=== PATIENT | female | born 1990 | race American Indian/Alaskan Native ===

== ENCOUNTER 2018-12-25 20:04 | Outpatient (CLI) | payer MEDICAID, OTHER ==
[2018-12-25] MEDS ORDERED: LACTATED RINGERS 1,000 ML IV ONE (20:36)
[2018-12-25 21:45] LABS: Hematocrit 36.3 % (30.3-42.9); Hemoglobin 11.6 gm/dl (10.1-14.3); Mean Corpuscular HGB Conc 32 % (30-34); Mean Corpuscular Volume 78 fl (79-97); Platelet Count 178 K/mm3 (140-440); Red Blood Count 4.67 M/mm3 (3.65-5.03); Red Cell Distribution Width 19.1 % (13.2-15.2)
[2018-12-25 21:53] LABS: Bacteria,Urine 2+ /HPF (Negative); Bilirubin,Urine NEG (Negative); Blood,Urine NEG (Negative); Color,Urine Yellow (Yellow); Mucus,Urine 2+ /HPF; Urobilinogen,Urine < 2.0 mg/dL (<2.0)
[2018-12-25 21:56] VITALS: BP 137/74
[2018-12-25 22:02] LABS: Alanine Aminotransferase 15 units/L (7-56); Uric Acid 5.1 mg/dL (3.5-7.6)
== END 2018-12-25 23:08 | disposition home or self-care (01) ==
LOC: TRG 20:04
PROVIDERS: ATTEND Obstetrics & Gynecology
DX: O47.03 False labor before 37 completed weeks of gestation, third trimester (principal); O13.3 Gestational [pregnancy-induced] hypertension without significant proteinuria, third trimester; O24.410 Gestational diabetes mellitus in pregnancy, diet controlled; Z3A.37 37 weeks gestation of pregnancy
CPT/HCPCS: 36415; 59025; 81001; 82565; 83615; 84450; 84460; 84550; 85027

== ENCOUNTER 2018-12-27 13:34 | Inpatient (IN) | payer OTHER, MEDICAID ==
[2018-12-27] MEDS ORDERED: ZOFRAN IV PRN (14:01)
[2018-12-27] MEDS ORDERED: SUBLIMAZE IV PRN (14:01)
[2018-12-27] MEDS ORDERED: MINERAL OIL PO PRN (14:01)
[2018-12-27] MEDS ORDERED: NARCAN 0.4 MG/1 ML IV PRN (14:01)
[2018-12-27] MEDS ORDERED: XYLOCAINE 2% INFILTRATI ONE (14:01)
[2018-12-27] MEDS ORDERED: PHENERGAN PO PRN (14:01)
[2018-12-27] MEDS ORDERED: STADOL IV PRN (14:01)
[2018-12-27] MEDS ORDERED: BRETHINE SUB-Q PRN (14:13)
--- NOTE | 2018-12-27 14:13 | History and Physical Report ---
History of Present Illness Date of examination: 12/27/18 Date of admission: 12/27/18 13:34 Chief complaint: recommnedeed iol by [facility] for uncontrolled glucose and elevated BP History of present illness: 28 yo at 37+3 weeks here for IOL. She is a transfer at 29 weeks. Rubella non -IMM. Patient as hx of ascus + HPV needs colpo PP. Anemia on iron. Past History Past Medical History: no pertinent history Past Surgical History: no surgical history Family/Genetic History: diabetes, hypertension Social history: single. denies: smoking, alcohol abuse, prescription drug abuse - Obstetrical History Expected Date of Delivery: 01/13/19 Actual Gestation: 37 Week(s) 4 Day(s) : 1 Para: 0 Hx # Term Pregnancies: 0 Number of Pregnancies: 0 Spontaneous Abortions: 0 Induced : 0 Number of Living Children: 0 Medications and Allergies Allergies Allergy/AdvReac Type Severity Reaction Status Date / Time latex Allergy Itching Verified 12/25/18 20:33 Home Medications Medication Instructions Recorded Confirmed Last Taken Type Ferrous Sulfate 325 mg PO BID 12/25/18 12/25/18 12/24/18 History Pnv 29-1 Tablet 1 tab PO DAILY 12/25/18 12/25/18 12/25/18 History Review of Systems All systems: negative - Physical Exam Breasts: Positive: normal Cardiovascular: Regular rate, Normal S1 Lungs: Positive: Clear to auscultation, Normal air movement Abdomen: Positive: soft, normal bowel sounds. Negative: distention, tenderness, guarding Genitourinary (Female): Positive: normal external genitalia, normal perenium Vagina: Positive: normal moisture Uterus: Positive: normal size, normal contour Anus/Rectum: Positive: normal perianal skin Extremities: Positive: normal Deep Tendon Reflex Grade: Normal +2 - Obstetrical FHR: category 1 Cervical Dilatation: 0.5 Cervical Effacement Percentage: 60 station: -3 Uterine Contraction Pattern: Absent Uterine Tone Measurement Phase: Resting Results All other labs normal. Assessment and Plan A/P HD1 IOL recommneded by [facility] for GDM diet control and elevated BP PIH w/u IVF, labs will start off with cervidil close monitor of maternal and status
[2018-12-27] MEDS ORDERED: BRETHINE IVP PRN (14:14)
[2018-12-27] MEDS ORDERED: PITOCin/NS 30 UNIT/500ML 30 UNITS/500 ML BAG IV SCH ×2 (15:00)
[2018-12-27] MEDS ORDERED: PITOCin/NS 20 UNIT/1000ML DRIP 20 UNITS/1,000 ML BAG IV SCH (15:00)
[2018-12-27] MEDS ORDERED: CERVIDIL VG ONE (15:01)
[2018-12-27] MEDS ORDERED: PEPCID IV ONE (17:44)
[2018-12-27 18:02] LABS: Hematocrit 37.7 % (30.3-42.9); Hemoglobin 11.8 gm/dl (10.1-14.3); Mean Corpuscular HGB Conc 31 % (30-34); Mean Corpuscular Volume 79 fl (79-97); Red Blood Count 4.75 M/mm3 (3.65-5.03); Red Cell Distribution Width 19.6 % (13.2-15.2)
[2018-12-27 18:03] LABS: Platelet Count 115 K/mm3 (140-440)
[2018-12-27] MEDS ORDERED: AMPICILLIN/NS 2 GM/100 ML 2 GM/100 ML BAG IV ONE (18:08)
[2018-12-27] MEDS ORDERED: D50W (25GM) Syringe IV PRN (21:56)
[2018-12-27] MEDS: AMBIEN PO PRN (23:20)
[2018-12-27 23:31] LABS: Alanine Aminotransferase 16 units/L (7-56); Uric Acid 5.5 mg/dL (3.5-7.6)
[2018-12-28] MEDS ORDERED: CYTOTEC VG ONE (07:25)
[2018-12-28] MEDS: LACTATED RINGERS 1,000 ML IV SCH ×3 (08:11→18:04)
--- NOTE | 2018-12-28 10:12 | Progress Note ---
Assessment and Plan A/P HD2 IOL recommneded by M for GDM diet control and elevated BP PIH w/u neg IVF, labs s/p cervidil currently cytotec intitated close monitor of maternal and status continue IOL Subjective - Subjective Date of service: 12/28/18 Principal diagnosis: Term , uncontrolled glucose, elevated BP Interval history: 28 yo at 37+3 weeks here for IOL. She is a transfer at 29 weeks. Rubella non -IMM. Patient as hx of ascus + HPV needs colpo PP. Anemia on iron. Patient reports: movement normal, contractions, no new complaints, no loss of fluid, no vaginal bleeding Objective - Vital Signs Vital Signs: Vital Signs - 12hr 12/28/18 12/28/18 12/28/18 06:11 06:15 06:16 Pulse Rate 73 73 67 Respiratory 14 14 Rate Blood Pressure 135/75 144/75 Blood Pressure 135/75 144/75 [Right] 12/28/18 12/28/18 12/28/18 07:17 08:18 10:07 Pulse Rate 71 63 75 Respiratory Rate Blood Pressure 150/78 169/88 153/82 Blood Pressure [Right] - Exam Breasts: normal Cardiovascular: Regular rate, Normal S1 Lungs: Clear to auscultation, Normal air movement Abdomen: Present: normal appearance, soft, normal bowel sounds. Absent: distention, tenderness, guarding Vulva: both: normal Uterus: Present: normal, firm. Absent: bogginess, tenderness FHR: category 1 Cervical Dilatation: 0.5 Cervical Effacement Percentage: 60 station: -3 Uterine Contraction Pattern: Irregular Uterine Tone Measurement Phase: Contraction Uterine Contraction Intensity: Mild Extremities: normal Deep Tendon Reflex Grade: Normal +2 - Labs Labs: Abnormal Labs 12/27/18 12/27/18 17:30 22:25 MCH 25 L RDW 19.6 H Plt Count 115 L POC Glucose 109 H Laboratory Results - last 24 hr 12/27/18 12/27/18 12/27/18 17:30 17:30 22:16 WBC 9.2 RBC 4.75 Hgb 11.8 Hct 37.7 MCV 79 MCH 25 L MCHC 31 RDW 19.6 H Plt Count 115 L Creatinine 0.7 Estimated GFR > 60 POC Glucose Uric Acid 5.5 AST 14 ALT 16 Lactate Dehydrogenase 170 Blood Type A POSITIVE Antibody Screen Negative 12/27/18 12/28/18 12/28/18 22:25 02:12 06:26 WBC RBC Hgb Hct MCV MCH MCHC RDW Plt Count Creatinine Estimated GFR POC Glucose 109 H 72 73 Uric Acid AST ALT Lactate Dehydrogenase Blood Type Antibody Screen
[2018-12-28] MEDS: CYTOTEC VG SCH ×2 (17:59→22:53)
[2018-12-28] MEDS: AMBIEN PO PRN (22:53)
[2018-12-29] MEDS: CYTOTEC VG SCH (04:30)
[2018-12-29] MEDS: AMPICILLIN/NS 1 GM/50 ML 1 GM/50 ML BAG IV SCH ×3 (05:06→14:16)
[2018-12-29] MEDS: LACTATED RINGERS 1,000 ML IV SCH ×3 (08:08→14:15)
--- NOTE | 2018-12-29 08:44 | Progress Note ---
Assessment and Plan A/P HD3 IOL recommneded by M for GDM diet control and elevated BP PIH w/u neg Glucose monitored last level 80s ( on sliding scale) s/p cervidil, cytotec currently intitating pitocin offer epidural close monitor of maternal and status continue IOL Subjective - Subjective Date of service: 12/29/18 Principal diagnosis: Term , uncontrolled glucose, elevated BP Interval history: 28 yo at 37+3 weeks here for IOL. She is a transfer at 29 weeks. Rubella non -IMM. Patient as hx of ascus + HPV needs colpo PP. Anemia on iron. Patient reports: loss of fluid, movement normal, contractions, no new complaints, no vaginal bleeding Objective - Vital Signs Vital Signs: Vital Signs - 12hr 12/28/18 12/28/18 12/28/18 20:46 20:48 22:45 Temperature Pulse Rate 69 69 67 Respiratory Rate Blood Pressure 164/87 165/80 Blood Pressure [Right] O2 Sat by Pulse 98 Oximetry 12/28/18 12/29/18 12/29/18 22:51 00:58 04:33 Temperature 97.7 F 96.7 F L Pulse Rate 67 75 66 Respiratory 18 14 Rate Blood Pressure 140/76 136/78 Blood Pressure 165/80 140/76 [Right] O2 Sat by Pulse Oximetry 12/29/18 12/29/18 06:29 07:45 Temperature Pulse Rate 68 Respiratory 20 Rate Blood Pressure 150/84 Blood Pressure [Right] O2 Sat by Pulse Oximetry - Exam Breasts: normal Cardiovascular: Regular rate, Normal S1 Lungs: Clear to auscultation, Normal air movement Abdomen: Present: normal appearance, soft, normal bowel sounds. Absent: distention, tenderness, guarding Vulva: both: normal Uterus: Present: normal, firm FHR: category 1 Cervical Dilatation: 3 Cervical Effacement Percentage: 70 station: -3 Uterine Contraction Pattern: Irregular Uterine Contraction Intensity: Mild - Labs Labs: Abnormal Labs 12/27/18 12/27/18 12/28/18 17:30 22:25 10:34 MCH 25 L RDW 19.6 H Plt Count 115 L POC Glucose 109 H 174 H 12/28/18 12/28/18 15:05 20:49 MCH RDW Plt Count POC Glucose 44 L 58 L Laboratory Results - last 24 hr 12/27/18 12/28/18 12/28/18 17:30 10:34 15:05 POC Glucose 174 H 44 L RPR Nonreactive 12/28/18 12/29/18 12/29/18 20:49 03:30 08:27 POC Glucose 58 L 71 81 RPR
[2018-12-29] MEDS ORDERED: MARCAINE 0.25% INFILTRATI ONE (09:03)
--- NOTE | 2018-12-29 09:16 | Anesthesia Consultation ---
Anesthesia Consult and Med Hx - Airway Anesthetic Teeth Evaluation: Good ROM Head & Neck: Adequate Mental/Hyoid Distance: Adequate Mallampati Class: Class II Intubation Access Assessment: Probably Good - Pulmonary Exam CTA: Yes - Cardiac Exam Cardiac Exam: RRR - Pre-Operative Health Status ASA Pre-Surgery Classification: ASA3 Proposed Anesthetic Plan: Epidural - Pulmonary Hx Smoking: No Hx Asthma: No Hx Respiratory Symptoms: No SOB: No COPD: No Home Oxygen Therapy: No Hx Pneumonia: No Hx Sleep Apnea: No - Cardiovascular System Hx Hypertension: Yes (pih) Hx Coronary Artery Disease: No Hx Heart Attack/AMI: No Hx Angina: No Hx Percutaneous Transluminal Coronary Angioplasty (PTCA): No Hx Cardia Arrhythmia: No Hx Pacemaker: No Hx Internal Defibrillator: No Hx Valvular Heart Disease: No Hx Heart Murmur: No Hx Peripheral Vascular Disease: No - Central Nervous System Hx Neuromuscular Disorder: No Hx Seizures: No CVA: No Hx Back Pain: No Hx Psychiatric Problems: No - Gastrointestinal Hx Ulcer: No - Endocrine Hx Renal Disease: No Hx End Stage Renal Disease: No Hx Cirrhosis: No Hx Liver Disease: No Hx Insulin Dependent Diabetes: No (gestational diabetes) Hx Non-Insulin Dependent Diabetes: No Hx Thyroid Disease: No Hx Hypothyroidism: No Hx Hyperthyroidism: No - Hematic Hx Anemia: No Hx Sickle Cell Disease: No - Other Systems Hx Alcohol Use: No Hx Substance Use: No Hx Cancer: No Hx Obesity: Yes
[2018-12-29] MEDS ORDERED: NARCAN 2 MG/2 ML IV PRN (09:19)
[2018-12-29] MEDS ORDERED: fentaNYL-BUPIV 2 MCG/ML-0.125% 200 MCG/100 ML BAG EPIDURAL SCH (10:00)
[2018-12-29] MEDS ORDERED: fentaNYL-BUPIV 2 MCG/ML-0.125% 200 MCG/100 ML BAG EPIDURAL ONE (10:42)
[2018-12-29] MEDS ORDERED: LIDOCAINE 1.5%/EPI 1:200,000 INFILTRATI ONE (16:30)
[2018-12-29] MEDS ORDERED: XYLOCAINE 2% INFILTRATI ONE (18:08)
[2018-12-29] MEDS ORDERED: PHENERGAN PO PRN (18:16)
[2018-12-29] MEDS ORDERED: TUCKS PAD TP PRN (18:16)
[2018-12-29] MEDS ORDERED: LANSINOH TP PRN (18:16)
[2018-12-29] MEDS ORDERED: ZOFRAN IV PRN (18:16)
[2018-12-29] MEDS ORDERED: DULCOLAX PR PRN (18:16)
[2018-12-29] MEDS ORDERED: PHENERGAN PR PRN (18:16)
[2018-12-29] MEDS ORDERED: PERCOCET 5/325 PO PRN (18:16)
[2018-12-29] MEDS ORDERED: BENADRYL PO PRN (18:16)
[2018-12-29] MEDS ORDERED: MILK OF MAGNESIA PO PRN (18:16)
[2018-12-29] MEDS ORDERED: TYLENOL PO PRN (18:16)
--- NOTE | 2018-12-29 18:23 | Procedure Note ---
OB Delivery Note - Delivery Date of Delivery: 12/29/18 Surgeon: JENNIFFER AC Estimated blood loss: other (250cc) - Vaginal Delivery presentation: vertex Delivery position: OA Intrapartum events: meconium (terminal) Delivery induction: cervidil Delivery augmentation: rupture of membranes, pitocin Delivery monitor: external FHT, external uterine Delivery placenta: spontaneous Delivery cord: nuchal cord, 3 umbilical vessels Episiotomy: none Delivery laceration: 1st degree Delivery repair: vicryl Anesthesia: epidural Delivery comments: Patient was noted to c/c/ +1 and commenced to pushing a viable female infant at 1754. The baby delivered after a tight nuchal cord reduced with easily delivery. The placenta delivered intact with 3 vessel cord at 1800. The apgars were 7 and 9. Weight of baby 6 pounds 11 oz. 1st degree lacs noted.Repaired in normal usual fashion with 2-0 vicryl. Patient tolerated procedure well. EBl 250 cc. Patient bonded with baby.
[2018-12-29] MEDS ORDERED: SODIUM CHLORIDE FLUSH SYRINGE 10 ML IV NR (19:00)
[2018-12-29 20:48] LABS: Hematocrit 37.8 % (30.3-42.9); Mean Corpuscular HGB Conc 32 % (30-34); Mean Corpuscular Volume 78 fl (79-97); Platelet Count 163 K/mm3 (140-440); Red Blood Count 4.86 M/mm3 (3.65-5.03); Red Cell Distribution Width 19.2 % (13.2-15.2)
[2018-12-29 21:08] LABS: Alanine Aminotransferase 19 units/L (7-56); Uric Acid 6.4 mg/dL (3.5-7.6)
[2018-12-29] MEDS: IBUPROFEN PO SCH (21:51)
[2018-12-29] MEDS ORDERED: FEOSOL PO SCH (22:00)
[2018-12-30] MEDS: COLACE PO SCH ×3 (00:31→22:20)
[2018-12-30] MEDS: NORCO 5/325 PO PRN ×2 (00:41→22:19)
[2018-12-30] MEDS: IBUPROFEN PO SCH ×3 (05:05→12:41)
[2018-12-30] MEDS ORDERED: BOOSTRIX IM ONE (06:00)
[2018-12-30 07:01] LABS: Hematocrit 34.5 % (30.3-42.9); Hemoglobin 11.1 gm/dl (10.1-14.3)
[2018-12-30] MEDS: PRENATAL VITAMIN PO SCH (10:10)
--- NOTE | 2018-12-30 17:40 | Progress Note ---
Assessment and Plan - Patient Problems (1) Vaginal delivery Current Visit: Yes Status: Acute Plan to address problem: patient doing well discharge home tomorrow Subjective - Subjective Date of service: 12/31/18 Principal diagnosis: Term , uncontrolled glucose, elevated BP Interval history: Patient without any significant complaints. Pain well controlled. Patient reports: appetite normal, voiding normally, pain well controlled : doing well Objective - Vital Signs Latest vital signs: Vital Signs Temp Pulse Resp BP BP Pulse Ox 12/30/18 13:17 97.5 F L 18 133/74 12/30/18 08:20 97.7 F 18 126/79 12/30/18 05:23 98.1 F 72 20 140/81 95 12/30/18 00:43 98.3 F 79 20 145/83 98 12/30/18 00:41 18 12/29/18 23:20 98.8 F 18 150/78 12/29/18 21:51 18 12/29/18 21:17 82 167/81 12/29/18 19:55 90 160/82 12/29/18 19:18 93 H 162/91 12/29/18 19:09 95 H 158/83 12/29/18 19:00 96 H 151/86 12/29/18 18:18 108 H 163/69 12/29/18 18:17 111 H 149/80 Intake and Output 12/30/18 12/30/18 12/30/18 06:59 14:59 22:59 Intake Total 200 360 Output Total 500 1200 Balance -300 -840 Intake: Oral 200 360 Output: Urine 500 1200 Void 500 1200 Other: Total, Intake Amount 200 120 Total, Output Amount 500 600 - Exam Uterus: Present: normal, firm - Labs Labs: Abnormal lab results 12/29/18 12/29/18 Range/Units 20:29 20:29 WBC 16.5 H (4.5-11.0) K/mm3 MCV 78 L (79-97) fl MCH 25 L (28-32) pg RDW 19.2 H (13.2-15.2) % Lactate Dehydrogenase 256 H (91-180) units/L
[2018-12-30] MEDS ORDERED: M-M-R II VACCINE SUB-Q ONE (18:16)
--- NOTE | 2018-12-31 08:22 | Discharge Summary ---
Providers - Providers Date of Admission: 12/27/18 18:12 Date of discharge: 12/31/18 Attending physician: JENNIFFER AC MD Primary care physician: [employer] [facility] Hospitalization Reason for admission: induction of labor Delivery: Discharge diagnosis: IUP at term delivered Hospital course: Patient admitted for induction of labor for gestational diabetes and HTN. s/p . unremarkable Condition at discharge: Good Disposition: DC-01 TO HOME OR SELFCARE - Discharge Diagnoses (1) Vaginal delivery Status: Acute Plan - Discharge Medications Prescriptions: RX: Ferrous Sulfate 325 mg PO BID #60 tablet. Ibuprofen [Motrin] 600 mg PO Q8H PRN #30 tablet PRN Reason: Pain oxyCODONE /ACETAMINOPHEN [Percocet 5/325] 1 tab PO Q6HR PRN #30 tablet PRN Reason: Pain - Provider Discharge Summary Activity: no sex for 6 weeks, no heavy lifting 4 weeks, no strenuous exercise Diet: routine Instructions: routine Additional instructions: [] Smoking cessation referral if applicable(refer to patient education folder for contact #) [] Refer to [facility] Booklet Call your doctor immediately for: * Fever > 100.5 * Heavy vaginal bleeding ( >1 pad per hour) * Severe persistent headache * Shortness of breath * Reddened, hot, painful area to leg or breast * schedule visit in 4 weeks - Follow up plan
[2018-12-31] MEDS: PRENATAL VITAMIN PO SCH (11:40)
[2018-12-31] MEDS: COLACE PO SCH (11:40)
[2018-12-31] MEDS: IBUPROFEN PO SCH (11:40)
[2018-12-31 18:35] VITALS: BP 150/90
== END 2018-12-31 19:05 | disposition home or self-care (01) | DRG 807 ==
LOC: UNDOADMIN 13:34 → LD 13:34 → OB 12-29 23:06
PROVIDERS: ADMIT Obstetrics & Gynecology; ATTEND Obstetrics & Gynecology
PROC: 10E0XZZ Delivery of Products of Conception, External Approach (ICD-10-PCS; principal; 2018-12-29)
PROC: 0HQ9XZZ Repair Perineum Skin, External Approach (ICD-10-PCS; 2018-12-29)
PROC: 3E0P7VZ Introduction of Hormone into Female Reproductive, Via Natural or Artificial Opening (ICD-10-PCS; 2018-12-29)
PROC: 3E0R3BZ Introduction of Anesthetic Agent into Spinal Canal, Percutaneous Approach (ICD-10-PCS; 2018-12-29)
PROC: 00HU33Z Insertion of Infusion Device into Spinal Canal, Percutaneous Approach (ICD-10-PCS; 2018-12-29)
PROC: 3E0234Z Introduction of Serum, Toxoid and Vaccine into Muscle, Percutaneous Approach (ICD-10-PCS; 2018-12-30)
DX: O77.0 Labor and delivery complicated by meconium in amniotic fluid (principal); Z37.0 Single live birth; O13.4 Gestational [pregnancy-induced] hypertension without significant proteinuria, complicating childbirth; O24.420 Gestational diabetes mellitus in childbirth, diet controlled; O69.1XX0 Labor and delivery complicated by cord around neck, with compression, not applicable or unspecified; O70.0 First degree perineal laceration during delivery; Z3A.37 37 weeks gestation of pregnancy; Z23 Encounter for immunization; Z83.3 Family history of diabetes mellitus; Z82.49 Family history of ischemic heart disease and other diseases of the circulatory system; Z91.040 Latex allergy status; Z79.899 Other long term (current) drug therapy
CPT/HCPCS: 36415; 59200; 82565; 82962; 83615; 84450; 84460; 84550; 85014; 85018; 85027; 86592; 86850; 86900; 86901; G0378; A6250; J0290; J0595; J2590; J3010; J7120

== ENCOUNTER 2020-01-29 20:45 | Inpatient (IN) | payer MEDICAID, OTHER ==
[2020-01-29] MEDS ORDERED: LACTATED RINGERS 1,000 ML ONE (21:35)
[2020-01-29 22:29] LABS: Hematocrit 39.7 % (30.3-42.9); Hemoglobin 13.1 gm/dl (10.1-14.3); Mean Corpuscular HGB Conc 33 % (30-34); Mean Corpuscular Volume 80 fl (79-97); Platelet Count 174 K/mm3 (140-440); Red Blood Count 4.95 M/mm3 (3.65-5.03)
[2020-01-29] MEDS ORDERED: TERBUTALINE 1 MG/1 ML INJ IVP PRN (23:40)
[2020-01-29] MEDS ORDERED: LIDOCAINE (2%) 20 MG/1 ML VIAL 20 ML MDV INFILTRATI ONE (23:40)
[2020-01-29] MEDS ORDERED: ONDANSETRON 4 MG/2 ML INJ IV PRN (23:40)
[2020-01-29] MEDS ORDERED: MINERAL OIL 30 ML ORAL LIQD PO PRN (23:40)
[2020-01-29] MEDS ORDERED: AMPICILLIN/NS 2 GM/100 ML 2 GM/100 ML BAG IV ONE (23:40)
[2020-01-29] MEDS ORDERED: DINOPROSTONE 10 MG VAG SUPP VG ONE (23:40)
[2020-01-29] MEDS ORDERED: ePHEDrine SULFATE 50 MG/1 ML INJ IV PRN (23:40)
[2020-01-29] MEDS ORDERED: NALOXONE 0.4 MG/1 ML INJ IV PRN (23:40)
[2020-01-29] MEDS ORDERED: fentaNYL 100 MCG/2 ML INJ IV PRN (23:40)
[2020-01-29] MEDS ORDERED: TERBUTALINE 1 MG/1 ML INJ SUB-Q PRN (23:40)
[2020-01-29] MEDS ORDERED: PROMETHAZINE 25 MG TAB PO PRN (23:40)
[2020-01-29] MEDS ORDERED: OXYTOCIN 20 UNIT/1000ML DRIP 20 UNITS/1,000 ML BAG IV SCH (23:45)
--- NOTE | 2020-01-30 01:39 | History and Physical Report ---
History of Present Illness Date of examination: 01/30/20 Date of admission: 01/29/20 20:45 Chief complaint: Here for induction History of present illness: Pt is a 29 yo at 38.6 weeks EGA who presents for induction of labor secondary to poorly controlled gestational diabetes, recently started on Metformin 500mg BID. She reports positive movement and denies LOF, vaginal bleeding, or contractions. She has received care with [facility] since 14 weeks EGA. Her has been complicated by poorly controlled GDM, pyelectasis resolved, and obesity. She has been taking low dose ASA for history of gestational HTN. 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 She is GBS positive. Past History Past Medical History: other (previous gestational hypertension, current gestational diabetes) Past Surgical History: no surgical history [employer]IST History: abnormal PAP smear Social history: no significant social history - Obstetrical History Expected Date of Delivery: 02/07/20 Actual Gestation: 38 Week(s) 6 Day(s) : 2 Para: 1 Hx # Term Pregnancies: 1 Number of Living Children: 1 Medications and Allergies Allergies Allergy/AdvReac Type Severity Reaction Status Date / Time latex Allergy Itching Verified 12/25/18 20:33 pollen extracts Allergy Unknown Verified 01/29/20 23:48 Home Medications Medication Instructions Recorded Confirmed Last Taken Type Aspirin [Adult Aspirin] 81 mg PO DAILY 01/29/20 01/29/20 1 Day Ago History ~01/28/20 Vit-Fe Fumar-FA [ 1 tab PO QDAY 01/29/20 01/29/20 1 Day Ago History Vitamin] ~01/28/20 metFORMIN [Glucophage] 500 mg PO BID 01/29/20 01/29/20 1 Day Ago History ~01/28/20 Active Meds: Active Medications Butorphanol Tartrate (Stadol) 1 mg IV Q2H PRN PRN Reason: Labor Pain Ephedrine Sulfate (Ephedrine Sulfate) 10 mg IV Q2M PRN PRN Reason: Hypotension Fentanyl (Sublimaze) 100 mcg IV Q2H PRN PRN Reason: Labor Pain Oxytocin/Sodium Chloride (Pitocin/Ns 20 Unit/1000ml Drip) 20 units in 1,000 mls @ 125 mls/hr IV DIRECT PEDRO Lactated Ringer's (Lactated Ringers) 1,000 mls @ 125 mls/hr IV DIRECT PEDRO Ampicillin Sodium (Ampicillin/Ns 1 Gm/50 Ml) 1 gm in 50 mls @ 100 mls/hr IV Q4HR PEDRO; Protocol Mineral Oil (Mineral Oil) 30 ml PO QHS PRN PRN Reason: Constipation Naloxone HCl (Naloxone) 0.1 mg IV Q2MIN PRN PRN Reason: Res Rate </= 8 or 02 SAT < 92% Ondansetron HCl (Zofran) 4 mg IV Q8H PRN PRN Reason: Nausea And Vomiting Promethazine HCl (Phenergan) 25 mg PO Q6H PRN PRN Reason: Nausea And Vomiting Terbutaline Sulfate (Brethine) 0.25 mg SUB-Q ONCE PRN PRN Reason: Hyperstimulation/Hypertonicity Terbutaline Sulfate (Brethine) 0.25 mg IVP ONCE PRN PRN Reason: Hyperstimulation/Hypertonicity Review of Systems All systems: negative Genitourinary: no vaginal bleeding, no vaginal discharge, no leakage of fluid, no contractions - Vital Signs Vital signs: Vital Signs Temp Pulse Resp BP 98.2 F 69 18 146/72 01/29/20 22:13 01/29/20 22:13 01/29/20 22:13 01/29/20 22:13 Temp Pulse Resp BP Pulse Ox 98.2 F 71 18 146/72 98 01/29/20 22:13 01/30/20 01:28 01/29/20 22:13 01/29/20 22:47 01/30/20 01:28 - Physical Exam Lungs: Positive: Normal air movement Abdomen: Positive: soft. Negative: tenderness Uterus: Positive: enlarged (gravid, EFW 7.5 pounds) - Obstetrical FHR: category 1 Uterine Contraction Monitor Mode: External Cervical Dilatation: 0 (per RN) Cervical Effacement Percentage: 40 station: -4 Results Result Diagrams: 01/29/20 22:00 Abnormal lab results 01/29/20 01/30/20 Range/Units 22:00 01:15 MCH 26 L (28-32) pg POC Glucose 167 H (70-105) All other labs normal. 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
[2020-01-30 04:36] LABS: Creatinine,Urine 81.9 mg/dL (0.1-20.0); Protein/Creatinine Ratio,Urine 0.13
[2020-01-30 04:40] LABS: Alanine Aminotransferase 14 units/L (7-56); Uric Acid 4.3 mg/dL (3.5-7.6)
[2020-01-30] MEDS: LACTATED RINGERS 1,000 ML IV SCH ×2 (05:37→17:32)
[2020-01-30] MEDS ORDERED: OXYTOCIN DRIP 30,000 MILLIUNITS/500 ML BAG IV ONE (14:10)
[2020-01-30] MEDS ORDERED: OXYTOCIN DRIP 30 UNITS/500 ML BAG IV SCH (15:00)
--- NOTE | 2020-01-30 16:47 | Event Note ---
Date: 01/30/20 Late entry. Pt uncomfortable with induction process. Reassurance given. Category I tracing. SVE: closed/thick. Pt's vagina very tender after cervidil, poorly tolerated cervical exam. Begin low dose pitocin for cervical ripening.
--- NOTE | 2020-01-30 19:00 | Event Note ---
Date: 01/30/20 Patient admitted for induction of labor secondary to gestational diabetes. The patient has received Cervidil and Pitocin without significant cervical change. The patient is requested to receive Cytotec per vagina. We will proceed with placement of Cytotec as an induction agent.
[2020-01-30] MEDS: miSOPROStol 25 MCG TAB VG PRN ×2 (22:08→22:33)
[2020-01-31] MEDS: BUTORPHANOL 2 MG/1 ML INJ IV PRN ×2 (00:03→03:14)
[2020-01-31] MEDS: LACTATED RINGERS 1,000 ML IV SCH ×4 (03:15→12:35)
--- NOTE | 2020-01-31 10:26 | Event Note ---
Date: 01/31/20 Amniotomy performed with evidence of clear fluid. Cervical exam consistent with 2 to 3 cm dilated 75% effaced. The patient had difficulty tolerating the cervical exam. Will initiate Pitocin for augmentation. Category 1 tracing
[2020-01-31] MEDS ORDERED: AMPICILLIN/NS 2 GM/100 ML 2 GM/100 ML BAG IV ONE (10:36)
[2020-01-31] MEDS ORDERED: DEXMEDETOMIDINE 200 MCG/2 ML VIAL IV ONE ×2 (11:49→20:11)
[2020-01-31] MEDS ORDERED: NALOXONE 2 MG/2 ML INJ IV PRN (12:05)
[2020-01-31] MEDS ORDERED: ePHEDrine SULFATE 50 MG/1 ML INJ IV PRN (12:05)
--- NOTE | 2020-01-31 12:07 | Anesthesia Consultation ---
Anesthesia Consult and Med Hx Date of service: 01/31/20 - Airway Anesthetic Teeth Evaluation: Good ROM Head & Neck: Adequate Mental/Hyoid Distance: Adequate Mallampati Class: Class II Intubation Access Assessment: Probably Good - Pulmonary Exam CTA: Yes - Cardiac Exam Cardiac Exam: RRR - Pre-Operative Health Status ASA Pre-Surgery Classification: ASA3 Proposed Anesthetic Plan: Epidural - Pulmonary Hx Smoking: No Hx Asthma: No Hx Respiratory Symptoms: No SOB: No COPD: No Hx Pneumonia: No Hx Sleep Apnea: No - Cardiovascular System Hx Hypertension: Yes Hx Coronary Artery Disease: No Hx Heart Attack/AMI: No Hx Angina: No Hx Percutaneous Transluminal Coronary Angioplasty (PTCA): No Hx Cardia Arrhythmia: No Hx Pacemaker: No Hx Internal Defibrillator: No Hx Valvular Heart Disease: No Hx Heart Murmur: No Hx Peripheral Vascular Disease: No - Central Nervous System Hx Neuromuscular Disorder: No Hx Seizures: No CVA: No Hx Back Pain: No Hx Psychiatric Problems: No - Gastrointestinal Hx Ulcer: No - Endocrine Hx Renal Disease: No Hx End Stage Renal Disease: No Hx Cirrhosis: No Hx Liver Disease: No Hx Insulin Dependent Diabetes: Yes (gestational diabetes) Hx Non-Insulin Dependent Diabetes: No Hx Thyroid Disease: No Hx Hypothyroidism: No Hx Hyperthyroidism: No - Hematic Hx Anemia: No Hx Sickle Cell Disease: No - Other Systems Hx Alcohol Use: No Hx Substance Use: No Hx Cancer: No Hx Obesity: Yes
[2020-01-31] MEDS ORDERED: fentaNYL-BUPIV 2 MCG/ML-0.125% 200 MCG/100 ML BAG EPIDURAL SCH (13:00)
[2020-01-31] MEDS: AMPICILLIN/NS 1 GM/50 ML 1 GM/50 ML BAG IV SCH ×2 (14:15→18:05)
[2020-01-31] MEDS ORDERED: ONDANSETRON 4 MG/2 ML INJ IV PRN (19:52)
[2020-01-31] MEDS ORDERED: WITCH HAZEL/ GLYCERIN PAD TP PRN (19:52)
[2020-01-31] MEDS ORDERED: MAGNESIUM HYDROXIDE (MOM) ORAL LIQD UDC PO PRN (19:52)
[2020-01-31] MEDS ORDERED: ACETAMINOPHEN 325 MG TAB PO PRN (19:52)
[2020-01-31] MEDS ORDERED: PROMETHAZINE 25 MG RECT SUPP PR PRN (19:52)
[2020-01-31] MEDS ORDERED: diphenhydrAMINE 25 MG CAP PO PRN (19:52)
[2020-01-31] MEDS ORDERED: PROMETHAZINE 25 MG TAB PO PRN (19:52)
[2020-01-31] MEDS ORDERED: LANOLIN/ZINC/DIMETHICONE (LANSINOH) 7 GM TP PRN (19:52)
--- NOTE | 2020-01-31 19:57 | Procedure Note ---
OB Delivery Note - Delivery Date of Delivery: 01/31/20 Surgeon: RAJIV PULIDO Estimated blood loss: 100cc - Vaginal Delivery presentation: vertex Delivery position: OA Delivery induction: cervidil Delivery augmentation: pitocin Delivery monitor: external FHT Route of delivery: Delivery placenta: spontaneous Delivery cord: nuchal cord, 3 umbilical vessels Episiotomy: none Delivery laceration: none Anesthesia: epidural Delivery comments: Patient progressed to complete complete +1 and post to deliver a live-born male with Apgars of 8 and 9 weight 7 pounds 13 ounces. After delivery of the head a nuchal cord x1 was manually reduced. The infant was then bulb suctioned and stimulated. The cord was clamped and cut x2 and the was placed on the patient's abdomen. The placenta delivered spontaneously intact with a three-vessel cord. No lacerations were noted. Estimated blood loss of 100 mL - A at 1 minute: 8 at 5 minutes: 9 Gender: Male (Weight 7 pounds 13 ounces)
[2020-01-31] MEDS ORDERED: IBUPROFEN 600 MG TAB PO SCH (20:00)
[2020-01-31] MEDS: HYDROcodone/ACETAMINOPHEN 5-325 MG TAB PO PRN (22:45)
[2020-02-01] MEDS: HYDROcodone/ACETAMINOPHEN 5-325 MG TAB PO PRN (06:42)
--- NOTE | 2020-02-01 07:47 | Progress Note ---
Assessment and Plan - Patient Problems (1) Gestational diabetes Current Visit: Yes Status: Acute Plan to address problem: Discharge home (2) Morbid obesity Current Visit: Yes Status: Acute (3) Vaginal delivery Current Visit: No Status: Acute Subjective - Subjective Date of service: 02/01/20 Interval history: Patient without any significant complaints. Her lochia is decreasing. She reports intermittent uterine cramping. Patient reports: appetite normal, voiding normally, pain well controlled [place]: doing well Objective - Vital Signs Latest vital signs: Vital Signs Temp Pulse Resp BP BP Pulse Ox 02/01/20 06:42 20 02/01/20 02:12 98.3 F 80 18 135/68 96 01/31/20 22:45 97.7 F 84 20 148/78 95 01/31/20 22:10 98 F 01/31/20 21:09 89 97 01/31/20 21:07 82 172/90 01/31/20 21:03 88 97 01/31/20 20:59 82 173/96 01/31/20 20:58 85 99 01/31/20 20:08 88 99 01/31/20 20:03 90 100 01/31/20 19:58 91 H 100 01/31/20 19:53 94 H 100 01/31/20 19:51 90 146/70 01/31/20 19:43 103 H 100 01/31/20 19:38 116 H 100 01/31/20 19:37 100 H 137/64 01/31/20 19:33 97 H 100 01/31/20 19:28 83 100 01/31/20 19:23 90 100 01/31/20 19:04 74 100 01/31/20 19:00 97.9 F 01/31/20 18:59 74 100 01/31/20 18:54 71 100 01/31/20 18:53 72 126/61 01/31/20 18:49 71 100 01/31/20 18:44 72 100 01/31/20 18:39 78 100 01/31/20 18:38 67 133/68 01/31/20 18:34 75 100 01/31/20 18:29 71 100 01/31/20 18:24 73 100 01/31/20 18:22 70 129/63 01/31/20 18:19 74 100 03/28/20 18:14 72 100 01/31/20 18:09 71 100 01/31/20 18:07 70 134/64 01/31/20 18:06 97.4 F L 16 01/31/20 18:04 72 98 01/31/20 17:59 69 98 01/31/20 17:54 66 99 01/31/20 17:53 77 151/64 01/31/20 17:49 70 98 01/31/20 17:44 73 98 01/31/20 17:39 69 99 01/31/20 17:37 67 126/60 01/31/20 17:34 72 98 01/31/20 17:29 65 99 01/31/20 17:24 66 100 01/31/20 17:23 66 136/66 01/31/20 17:19 69 99 01/31/20 17:14 68 100 01/31/20 17:05 57 L 83 L 01/31/20 17:02 65 100 01/31/20 16:57 70 100 01/31/20 16:53 69 135/76 01/31/20 16:52 69 100 01/31/20 16:47 72 100 01/31/20 16:42 69 100 01/31/20 16:38 79 137/75 01/31/20 16:37 72 100 01/31/20 16:32 67 100 01/31/20 16:27 65 100 01/31/20 16:23 64 126/70 01/31/20 16:22 68 100 01/31/20 16:17 67 100 01/31/20 16:12 67 100 01/31/20 16:08 72 153/82 01/31/20 16:07 69 100 01/31/20 16:02 66 100 01/31/20 15:57 72 100 01/31/20 15:53 68 138/82 01/31/20 15:52 66 100 01/31/20 15:35 63 99 01/31/20 15:30 67 100 01/31/20 15:28 97.9 F 20 01/31/20 15:25 69 100 01/31/20 15:23 69 121/71 01/31/20 15:20 66 99 01/31/20 15:15 64 99 01/31/20 15:10 67 100 01/31/20 15:08 69 117/66 01/31/20 15:05 67 99 01/31/20 15:00 68 99 01/31/20 14:55 66 100 01/31/20 14:52 64 115/61 01/31/20 14:50 66 100 01/31/20 14:45 68 100 01/31/20 14:40 68 100 01/31/20 14:38 71 119/77 01/31/20 14:35 65 100 01/31/20 14:30 71 100 01/31/20 14:25 67 100 01/31/20 14:22 68 115/65 01/31/20 14:20 69 100 01/31/20 14:15 67 100 01/31/20 14:10 68 100 01/31/20 14:07 66 121/66 01/31/20 14:05 70 100 01/31/20 14:00 70 100 01/31/20 13:55 68 100 01/31/20 13:52 69 116/58 01/31/20 13:50 74 100 01/31/20 13:45 68 98 01/31/20 13:40 77 99 01/31/20 13:36 68 96/53 01/31/20 13:35 67 98 01/31/20 13:30 70 98 01/31/20 13:26 84 94 01/31/20 13:25 77 98 01/31/20 13:24 72 96/54 01/31/20 13:20 81 98 01/31/20 13:15 74 97 01/31/20 13:10 69 96 01/31/20 13:06 72 115/56 01/31/20 13:05 76 98 01/31/20 13:00 84 99 01/31/20 12:55 84 98 01/31/20 12:53 97.4 F L 18 01/31/20 12:51 79 110/56 01/31/20 12:50 75 96 01/31/20 12:45 74 98 01/31/20 12:40 75 98 01/31/20 12:36 77 118/61 01/31/20 12:35 80 97 01/31/20 12:30 83 98 01/31/20 12:25 76 98 01/31/20 12:21 77 120/55 01/31/20 12:20 78 98 01/31/20 12:19 81 117/60 20 12:17 78 119/57 01/31/20 12:15 78 121/60 98 20 12:13 70 126/58 01/31/20 12:11 75 128/59 20 12:10 76 98 01/31/20 12:09 75 124/58 01/31/20 12:07 76 138/55 01/31/20 12:05 74 140/65 98 01/31/20 12:03 71 154/69 01/31/20 12:01 71 160/98 89 01/31/20 12:00 74 98 01/31/20 11:59 75 172/88 01/31/20 11:56 80 142/103 01/31/20 11:55 78 98 01/31/20 11:50 86 100 01/31/20 11:46 89 85 01/31/20 11:45 71 98 01/31/20 11:40 72 98 01/31/20 11:36 72 93 01/31/20 11:35 71 97 01/31/20 11:30 73 82 L 01/31/20 11:26 69 161/86 01/31/20 11:25 73 99 01/31/20 11:20 73 96 01/31/20 11:17 77 92 01/31/20 11:15 90 99 01/31/20 11:10 79 96 01/31/20 11:05 74 98 01/31/20 11:00 75 95 01/31/20 10:56 71 146/73 03 10:55 71 98 01/31/20 10:50 71 98 01/31/20 10:45 72 97 01/31/20 10:40 75 98 01/31/20 10:35 75 97 01/31/20 10:30 76 98 03 10:26 71 141/74 03 10:25 76 99 01/31/20 10:20 75 98 20 10:15 95 H 96 01/31/20 10:10 76 98 03 10:05 74 96 03 10:00 72 97 03 09:55 69 97 01/31/20 09:50 87 97 01/31/20 09:45 75 95 03/28/20 09:41 65 160/83 01/31/20 09:40 66 100 01/31/20 08:48 97.8 F 20 Intake and Output 01/31/20 02/01/20 02/01/20 22:59 06:59 14:59 Intake Total 8.8 840 Output Total 2100 1600 Balance -2091.2 -760 Intake: IV 8.8 PITOCin/NS 30 UNIT/500ML 8.8 30 units In 500 ml @ 4 mls/hr IV TITR PEDRO Rx#: [id number] Oral 480 Intake, Free Water 360 Output: Urine 2100 1600 Self-Catheterization 1300 Uretheral ([place]) 800 Void 1600 Other: Total, Intake Amount 480 Total, Output Amount 1300 600 Estimated Blood Loss 100 - Exam Uterus: Present: normal, firm - Labs Labs: Abnormal lab results 01/31/20 01/31/20 Range/Units 12:32 15:38 POC Glucose 110 H 57 L (70-105)
--- NOTE | 2020-02-01 07:49 | Discharge Summary ---
Providers - Providers Date of Admission: 01/29/20 20:45 Date of discharge: 02/01/20 Attending physician: SULY GLASER Primary care physician: SULY GLASER Hospitalization Reason for admission: induction of labor Delivery: complications: none Discharge diagnosis: IUP at term delivered Hospital course: Patient admitted for induction of labor for gestational hypertension and obesity. The patient had a normal spontaneous vaginal delivery. Her course was uncomplicated. Condition at discharge: Good Disposition: DC-01 TO HOME OR SELFCARE - Discharge Diagnoses (1) Gestational diabetes Status: Acute (2) Morbid obesity Status: Acute (3) Vaginal delivery Status: Acute Plan - Discharge Medications Prescriptions: Ibuprofen [Motrin] 800 mg PO Q8HR PRN #60 tablet PRN Reason: Pain, Mild (1-3) HYDROcodone/APAP 5-325 [[place] 5/325] 1 each PO Q6HR PRN #20 tablet PRN Reason: Pain - Provider Discharge Summary Activity: no sex for 6 weeks, no heavy lifting 4 weeks, no strenuous exercise Diet: routine Instructions: routine Additional instructions: [] Smoking cessation referral if applicable(refer to patient education folder for contact #) [] Refer to [facility] Book[facility] Call your doctor immediately for: * Fever > 100.5 * Heavy vaginal bleeding ( >1 pad per hour) * Severe persistent headache * Shortness of breath * Reddened, hot, painful area to leg or breast * Drainage or odor from incision. * Keep incision clean and dry at all times and follow doctor's instructions regarding bathing/showering Schedule follow-up in 4 weeks - Follow up plan
[2020-02-01 09:02] LABS: Hematocrit 38.8 % (30.3-42.9); Hemoglobin 12.6 gm/dl (10.1-14.3)
[2020-02-01 09:05] VITALS: BP 144/85
--- NOTE | 2020-02-01 21:19 | Post Anesthesia Evaluation ---
- Post Anesthesia Evaluation Patient Participated: Yes Airway Patent: Yes Stable Respiratory Function: Yes Nausea/Vomiting: No Temp > 96.8F: Yes Pain Manageable: Yes Adequeate Hydration: Yes Anesthesia Complications: No Block Receding Appropriately: Yes
== END 2020-02-01 16:10 | disposition home or self-care (01) | DRG 774 ==
LOC: LD 20:45 → OB 01-31 22:36
PROVIDERS: ADMIT Obstetrics & Gynecology; ATTEND Obstetrics & Gynecology
PROC: 10E0XZZ Delivery of Products of Conception, External Approach (ICD-10-PCS; principal; 2020-01-31)
PROC: 3E0R3BZ Introduction of Anesthetic Agent into Spinal Canal, Percutaneous Approach (ICD-10-PCS; 2020-01-31)
PROC: 00HU33Z Insertion of Infusion Device into Spinal Canal, Percutaneous Approach (ICD-10-PCS; 2020-01-31)
PROC: 3E0P7VZ Introduction of Hormone into Female Reproductive, Via Natural or Artificial Opening (ICD-10-PCS; 2020-01-31)
DX: O24.429 Gestational diabetes mellitus in childbirth, unspecified control (principal); O98.52 Other viral diseases complicating childbirth; O99.214 Obesity complicating childbirth; B00.9 Herpesviral infection, unspecified; O99.824 Streptococcus B carrier state complicating childbirth; O69.81X0 Labor and delivery complicated by cord around neck, without compression, not applicable or unspecified; Z91.048 Other nonmedicinal substance allergy status; E66.01 Morbid (severe) obesity due to excess calories; Z91.040 Latex allergy status; Z3A.38 38 weeks gestation of pregnancy; O13.4 Gestational [pregnancy-induced] hypertension without significant proteinuria, complicating childbirth
CPT/HCPCS: 36415; 59200; 82565; 82570; 82962; 83615; 84156; 84450; 84460; 84550; 85014; 85018; 85027; 86592; 86850; 86900; 86901; 87806; G0378; J0290; J0595; J2405; J2590; J3010; J3490; J7120; Q0177

== ENCOUNTER 2020-12-29 11:26 | Outpatient (CLI) | payer MEDICAID ==
--- NOTE | 2020-12-29 13:01 | XRay Report ---
BILATERAL KNEES ONE VIEW STANDING INDICATION / CLINICAL INFORMATION: BILATERAL KNEE PAIN. COMPARISON: None available. FINDINGS: No significant skeletal abnormality Signer Name: Miguel Grullon MD FACR Signed: 12/29/2020 12:57 PM Workstation Name: [email or web address]
== END 2020-12-29 11:27 | disposition home or self-care (01) ==
LOC: XRAY 11:26
PROVIDERS: ATTEND Orthopaedic Surgery
DX: M25.561 Pain in right knee (principal); M25.562 Pain in left knee
CPT/HCPCS: 73565